=== PATIENT | male | born 1960 | race African-American/Black ===

== ENCOUNTER 2017-01-06 11:21 | Inpatient (IN) | payer MEDICARE, MEDICAID ==
[~2017-01-06] VITALS: Ht 188 cm; Wt 95.3 kg
[2017-01-06] MEDS ORDERED: PHEN30TA42 PO (11:32)
[2017-01-06] MEDS ORDERED: TETANUS, DIPHTHERIA, PERTUSSIS VAC/PF 0.5ML (>7YR OLD) IM ONE (11:45)
[2017-01-06 12:37] LABS: HEMATOCRIT. 41.9 % (42.0-52.0); HEMOGLOBIN. 14.4 g/dL (14.0-18.0); MEAN PLATELET VOLUME 8.4 fl (7.4-10.4); PLATELET 234 x1000/uL (130-400); RED BLOOD CELL COUNT 4.51 mill/uL (4.7-6.1); RED CELL DISTRIBUTION WIDTH 13.4 % (11.6-14.6)
[2017-01-06 12:45] LABS: INR 1.1; PARTIAL THROMBOPLASTIN TIME 27.1 sec (23.4-31.0)
[2017-01-06 12:47] LABS: CARBON DIOXIDE 29 mEq/L (21-32); CHLORIDE 96 mEq/L (98-107)
[2017-01-06 12:55] LABS: TROPONIN I < 0.02 ng/mL (0.00-0.04)
[2017-01-06 12:56] LABS: PHENOBARBITAL 12.2 ug/mL (15.0-40.0)
[2017-01-06 13:25] LABS: PLATELET ESTIMATE NORMAL
[2017-01-06] MEDS ORDERED: PHENYTOIN SODIUM 1,000 MG in SODIUM CHLORIDE 0.9% 100 ML IV ONE (14:00)
[2017-01-06] MEDS ORDERED: ACETAMINOPHEN 325MG TABLET PO ONE (16:45)
[2017-01-06 17:15] VITALS: BP 140/101
[2017-01-06 17:21] VITALS: BP 140/101
[2017-01-06] MEDS ORDERED: PHEN100C4 PO (17:32)
[2017-01-06] MEDS ORDERED: HYDROCODONE/ACETAMINOPHEN 5/325MG TABLET PO PRN (18:30)
[2017-01-06] MEDS ORDERED: CLONIDINE 0.1MG TABLET PO PRN (18:30)
[2017-01-06] MEDS ORDERED: LORAZEPAM 2MG/ML CPJ IV PRN (18:30)
[2017-01-06] MEDS ORDERED: PNEUMOCOCCAL 23-VAL P-SAC VAC 0.5 ML IM ONE (20:00)
[2017-01-06] MEDS: SODIUM CHLORIDE 0.9% 1,000 ML IV SCH (20:17)
[2017-01-06 20:36] VITALS: BP 124/76
[2017-01-06] MEDS: PHENYTOIN SODIUM EXTENDED 100MG CAPSULE PO SCH (21:20)
[2017-01-06] MEDS: ACETAMINOPHEN 325MG TABLET PO PRN (22:01)
[2017-01-06 23:34] LABS: CREATINE KINASE MB FRACTION 8.3 ng/mL (0.5-3.6); TROPONIN I < 0.02 ng/mL (0.00-0.04)
[2017-01-06 23:38] LABS: CREATINE KINASE 2935 IU/L (39-308)
[2017-01-07 00:05] VITALS: BP 140/85
[2017-01-07 04:00] VITALS: BP 120/78
[2017-01-07] MEDS: PHENYTOIN SODIUM EXTENDED 100MG CAPSULE PO SCH ×3 (05:31→21:16)
[2017-01-07 07:19] VITALS: BP 139/94
[2017-01-07 07:22] LABS: CREATINE KINASE MB FRACTION 4.9 ng/mL (0.5-3.6); TROPONIN I < 0.02 ng/mL (0.00-0.04)
[2017-01-07 07:31] LABS: CREATINE KINASE 2418 IU/L (39-308)
[2017-01-07] MEDS: PHENOBARBITAL 30 MG TABLET PO SCH ×2 (09:19→16:26)
[2017-01-07] MEDS: AMLODIPINE 10MG TABLET PO SCH (09:20)
[2017-01-07] MEDS: SODIUM CHLORIDE 0.9% 1,000 ML IV SCH ×2 (09:20→21:16)
[2017-01-07 11:15] VITALS: BP 140/92
[2017-01-07 15:16] VITALS: BP 131/89
[2017-01-07 15:31] LABS: CREATINE KINASE MB FRACTION 2.5 ng/mL (0.5-3.6); TROPONIN I < 0.02 ng/mL (0.00-0.04)
[2017-01-07 15:35] LABS: CREATINE KINASE 2077 IU/L (39-308)
[2017-01-07] MEDS: ACETAMINOPHEN 325MG TABLET PO PRN (16:24)
[2017-01-07 20:00] VITALS: BP 130/79
[2017-01-07] MEDS: LEVOFLOXACIN 500MG PREMIX 100 ML IV SCH (21:49)
[2017-01-07] MEDS ORDERED: VANCOMYCIN 2,000 MG in DEXT 5% WATER 500 ML IV NR (23:00)
[2017-01-08] VITALS: BP 125/97
[2017-01-08 04:00] VITALS: BP 124/79
[2017-01-08] MEDS: VANCOMYCIN 1 G PREMIX 200 ML IV SCH ×2 (06:12→15:46)
[2017-01-08] MEDS: PHENYTOIN SODIUM EXTENDED 100MG CAPSULE PO SCH ×3 (06:12→22:10)
[2017-01-08 06:53] LABS: PHENOBARBITAL 9.5 ug/mL (15.0-40.0)
[2017-01-08 08:00] VITALS: BP 145/92
[2017-01-08] MEDS: AMLODIPINE 10MG TABLET PO SCH (08:39)
[2017-01-08] MEDS: PHENOBARBITAL 30 MG TABLET PO SCH ×2 (08:39→16:11)
[2017-01-08 12:00] VITALS: BP 143/91
[2017-01-08] MEDS: SODIUM CHLORIDE 0.9% 1,000 ML IV SCH (13:56)
[2017-01-08 16:00] VITALS: BP 153/88
[2017-01-08] MEDS: ACETAMINOPHEN 325MG TABLET PO PRN (16:11)
[2017-01-08 20:00] VITALS: BP 97/70
[2017-01-08] MEDS: LEVOFLOXACIN 500MG PREMIX 100 ML IV SCH (22:14)
[2017-01-09] VITALS: BP 142/90
[2017-01-09] MEDS: VANCOMYCIN 1 G PREMIX 200 ML IV SCH ×2 (00:22→06:00)
[2017-01-09] MEDS: SODIUM CHLORIDE 0.9% 1,000 ML IV SCH ×2 (00:23→13:25)
[2017-01-09 04:00] VITALS: BP 143/95
[2017-01-09] MEDS: PHENYTOIN SODIUM EXTENDED 100MG CAPSULE PO SCH ×2 (05:42→13:26)
[2017-01-09 08:00] VITALS: BP 140/95
[2017-01-09] MEDS: PHENOBARBITAL 30 MG TABLET PO SCH (08:47)
[2017-01-09] MEDS: AMLODIPINE 10MG TABLET PO SCH (08:47)
[2017-01-09 13:10] VITALS: BP 140/95
== END 2017-01-09 14:30 | disposition home or self-care (01) | DRG 101 ==
LOC: ER 11:34 → 7WST 14:55 → EDBEDREQ 14:59 → ENRESERV 15:38
PROVIDERS: ADMIT Hospitalist; ATTEND Hospitalist
DX: G40.909 Epilepsy, unspecified, not intractable, without status epilepticus (principal); R00.0 Tachycardia, unspecified; Z91.14 Patient's other noncompliance with medication regimen; Z79.899 Other long term (current) drug therapy
CPT/HCPCS: 36415; 71010; 80053; 80184; 80185; 80202; 82550; 82553; 83690; 84484; 85025; 85610; 85730; 87040; 90471; 90715; 90732; 93005; 96365; 99285; C1893; J1165; J1956; J3370; J7030; J7050; J7060